=== PATIENT | female | born 1970 | race Caucasian/White ===

== ENCOUNTER 2017-02-01 05:39 | Inpatient (IN) | payer BC ==
[~2017-02-01] VITALS: Ht 167.6 cm; Wt 75.5 kg
[~2017-02-01 05:39] MED LIST: OMEP20CA9 PO
[2017-02-01 06:45] LABS: NEG OBC UR NEG; POS OBC UR POS
[2017-02-01] MEDS ORDERED: MORPHINE SULFATE 2 MG/ML DISP.SYRIN. IV PRN ×2 (07:00→11:15)
[2017-02-01] MEDS ORDERED: HYDROmorphone 2 MG/ML VIAL IV PRN (07:00)
[2017-02-01] MEDS ORDERED: ONDANSETRON PF 4 MG/2 ML VIAL. ONE ×2 (07:00→10:57)
[2017-02-01] MEDS ORDERED: DEXAMETHASONE SOD PHOS 20 MG/5 ML VIAL. ONE (07:00)
[2017-02-01] MEDS ORDERED: IV RINGERS,LACTATED 1000ML 1,000 ML IV SCH (07:00)
[2017-02-01] MEDS ORDERED: LIDOCAINE 1% 1 ML SYRINGE. ID PRN (07:00)
[2017-02-01] MEDS ORDERED: PROCHLORPERAZINE 10 MG/2 ML VIAL. IV PRN (07:00)
[2017-02-01] MEDS ORDERED: PROPOFOL 20 ML IV ONE (07:00)
[2017-02-01] MEDS ORDERED: MIDAZOLAM HCL/PF 2 MG/2 ML VIAL. ONE (07:00)
[2017-02-01] MEDS ORDERED: fentaNYL PF VIAL 250 MCG/5 ML VIAL ONE (07:00)
[2017-02-01] MEDS ORDERED: fentaNYL PF VIAL 100 MCG/2 ML VIAL IV PRN ×2 (07:00)
[2017-02-01] MEDS ORDERED: ONDANSETRON PF 4 MG/2 ML VIAL. IV PRN ×2 (07:00→11:15)
[2017-02-01] MEDS ORDERED: LIDOCAINE 2% PF Vial for OR 5 ML VIAL. ONE (07:01)
[2017-02-01] MEDS ORDERED: FAMOTIDINE 20 MG/2 ML VIAL ONE (07:02)
[2017-02-01] MEDS ORDERED: ROCURONIUM 50 MG/5 ML VIAL. ONE ×2 (07:04→08:48)
[2017-02-01] MEDS ORDERED: BUPIVACAINE-EPI 0.25%-1:200000 50 ML VIAL. ONE (07:13)
[2017-02-01] MEDS ORDERED: BUPIVACAINE-EPI 0.25%-1:200000 MPF 30 ML VIAL. ONE (07:13)
[2017-02-01] MEDS ORDERED: METHYLENE BLUE 1% 1 ML VIAL. ONE (07:13)
[2017-02-01] MEDS ORDERED: 0.9 % SODIUM CHLORIDE 50 ML VIAL. IJ ONE ×2 (07:14→08:58)
[2017-02-01] MEDS ORDERED: ESTROGENS, CONJ VAGINAL CREAM 30GM TUBE. ONE (07:14)
[2017-02-01] MEDS ORDERED: ePHEDrine PF IN SALINE 50 MG/5 ML DISP.SYRIN IV ONE (08:05)
[2017-02-01] MEDS ORDERED: MORPHINE SULFATE 10 MG/ML VIAL. ONE (08:57)
[2017-02-01] MEDS ORDERED: NEOSTIGMINE METHYLSULFATE 5 MG/5 ML SYRINGE. ONE (10:22)
[2017-02-01] MEDS ORDERED: GLYCOPYRROLATE 1 MG/5 ML VIAL. ONE (10:22)
[2017-02-01] MEDS ORDERED: SEVOFLURANE > 120 MINUTES. IH ONE (10:40)
[2017-02-01] MEDS ORDERED: KETOROLAC 60 MG/2 ML INJ FOR OR. ONE (10:45)
--- NOTE | 2017-02-01 11:09 | PDOC ---
BRIEF OPERATIVE NOTE Date: Feb 01, 2017 Pre-Op Diagnosis enlared fibroid uterus, genuine stress urinary incontinence Post-Op Diagnosis same with adhesions of descending colon to posterior fibroid uterus Procedure Performed attempted laparoscopic vaginal hyst, converted to BRE, adhesiolysis, TVT abbrevo with cystoscopy and intraoperative consult with Dr. De Jesus obtained to look at surface of descending colon Surgeon Dr. Eric Bailey Thermometer Tester Dr. Hiwot Looney and intraoperative consult done by Dr. Mayelin De Jesus Anesthesiologist see anesthesia records Anesthesia Type: General Blood Loss 370cc IV Fluid see anesthesia records Urine Output 400cc clear via king Specimens Obtained cervix, uterus, bilateral tubes Findings enlarged fibroid uterus, normal bilateral tubes and ovaries; descending colon adhesed to left side of posterior uterus, unable to get good visualization around very large fibroids, so converted to open Complications none Additional Remarks [id number] ERIC BAILEY MD Feb 01, 2017 11:09
[2017-02-01] MEDS ORDERED: diphenhydrAMINE HCL 25 MG CAPSULE PO PRN (11:15)
[2017-02-01] MEDS ORDERED: diphenhydrAMINE 50 MG/ML VIAL IV PRN (11:15)
[2017-02-01] MEDS ORDERED: CALCIUM CARBONATE 500 MG TAB.CHEW PO PRN (11:15)
[2017-02-01] MEDS ORDERED: NALOXONE 0.4 MG/ML VIAL. IV PRN (11:15)
[2017-02-01] MEDS ORDERED: ZOLPIDEM 5 MG TABLET. PO PRN (11:15)
[2017-02-01] MEDS ORDERED: MAGNESIUM HYDROXIDE 2,400 MG/30 ML ORAL.SUSP. PO PRN (11:15)
[2017-02-01] MEDS ORDERED: SIMETHICONE 80 MG TAB.CHEW PO PRN (11:15)
[2017-02-01] MEDS ORDERED: LACTULOSE 20 GM/30 ML SOLUTION. PO PRN (11:15)
[2017-02-01] MEDS ORDERED: 0.9 % SODIUM CHLORIDE 10 ML DISP.SYRIN. IV PRN (11:15)
[2017-02-01] MEDS ORDERED: MAG HYDROX/ALUMINUM HYD/SIMETH 30 ML ORAL.SUSP PO PRN (11:15)
[2017-02-01 12:30] VITALS: BP 119/66
[2017-02-01 12:45] VITALS: BP 122/70
[2017-02-01 13:00] VITALS: BP 127/68
[2017-02-01 13:15] VITALS: BP 126/65
--- NOTE | 2017-02-01 13:26 | OP ---
DATE OF SURGERY: 02/01/2017 PREOPERATIVE DIAGNOSES: Enlarged fibroid uterus, anemia, and genuine stress urinary incontinence. POSTOPERATIVE DIAGNOSES: Enlarged fibroid uterus, anemia, and genuine stress urinary incontinence with adhesive disease. She had adhesions of her descending colon to the posterior uterus and large fibroid uterus. PROCEDURE: Attempted laparoscopic-assisted vaginal hysterectomy with conversion to an open total abdominal hysterectomy, adhesiolysis, bilateral salpingectomy, and TVT Abbrevo with cystoscopy. SURGEON: Eric Bailey M.D. PAINT MIXER: Hiwot Looney MD Intraoperative consult done by Dr. Wilma De Jesus. ANESTHESIA: General. ESTIMATED BLOOD LOSS: 370 mL. URINE OUTPUT: 400 mL, clear via Jimenez catheter. SPECIMEN OBTAINED: Cervix, uterus, and bilateral tubes. FINDINGS: Enlarged fibroid uterus, normal bilateral tubes and ovaries with the descending colon attached to the left side of the posterior uterus. As we were unable to get good visualization around the enlarged fibroid, it was decided to convert to an open total abdominal hysterectomy. These were taken down. The surface of the descending colon looked just kind of very friable and denuded. We did not think there was any bowel injury. However, we wanted to get a second opinion and did intraoperative consult with general surgeon, Dr. Wilma De Jesus, who took a second look at it for us to make sure nothing else needed to be done before closing. COMPLICATIONS: None. DESCRIPTION OF PROCEDURE: This patient was taken to the Operating Room where general anesthesia was placed. The patient was placed in a dorsal lithotomy position in [facility]. The patient's abdomen and vagina were prepped and draped in the normal sterile fashion, and a Jimenez catheter was inserted under sterile technique. After performing a timeout, a bivalve speculum was placed in the patient's vagina. A single tooth tenaculum was used to grasp the anterior lip of the cervix. A 10 mL of 0.25% Marcaine with epinephrine was used circumferentially injected around the cervix for both hemodissection and hemostatic purposes later. At this point, the ValtchMyrio uterine manipulator was placed through the endocervical os, locked on the single tooth tenaculum, and the bivalve speculum was then removed. Top gloves were discarded and changed. Attention was turned to the abdomen where a left upper quadrant incision was made, carried down to the underlying layer to the fascia with a curved Felisha clamp. The 5-mm Visiport was used to directly enter the abdominal cavity. Opening patient pressure was 2 mmHg. Carbon dioxide gas was used then appropriately to insufflate the abdominal cavity to maintain a pressure of 15 mmHg. The patient was placed in Trendelenburg position where a right and left lower quadrant ports were placed under direct visualization without difficulty as well atraumatically with the 5-mm Ethicon disposable atraumatic ports. At this point, we were able to identify the left and right round ligaments and see the uterus upfront, so we did begin the hysterectomy. The left round ligament was cauterized and cut with the LigaSure Advance, creating a window in the mesosalpinx, going down and making the bladder flap anteriorly sharply, elevating the left tube and ovary, going above the ovary, below the tube, doing a salpingectomy, and then even crossing the uterine ovarian pedicle with the LigaSure, cauterizing and cutting. This was done exactly the same on the right side. Using a 5-mm laparoscopic 5-mm single tooth tenaculum, we were able to manipulate the uterus fairly well to get down and try to get the uterine vessels and go down and further meet that bladder flap anteriorly after doing the right round ligament, cauterizing and cutting it, and going down and meeting that bladder flap, elevating the right tube and ovary, and again just doing the tube leaving the normal right ovary per the patient's request, crossing the uterine ovarian pedicle and again obtaining the uterines on this side, so we were able to accomplish that. However, as we were trying to go down the cervix into the cervix there on the left side, there were some peritoneal adhesions and then what looked like possible colon or bowel adhesions to the left posterior uterus. As we were unable to see these very well and get a good look out, and we were able to manipulate the enlarged uterus as well as we would have liked to, it was decided at this point, knowing that there was possible bowel adhesions, to go ahead and open her as we could not safely go down through the cardinal and broad ligaments with possible bowel adhesions on this left side. So at this point, all instruments were removed from the abdomen, and we did make a Pfannenstiel skin incision with the scalpel. It was carried down to the underlying layer of the fascia. The fascia was scored in the midline with the Bovie cautery. The Bovie cautery was used in the subcuticular layer for hemostasis. Ryan scissors were used to extend the fascia bilaterally. Uriel clamps x2 were placed on the superior fascial edge. The fascia was dissected from the rectus muscles beneath sharply and bluntly. This was done inferiorly as well down to the level of the pubic bone. The rectus muscles were in the midline. The peritoneum was digitally entered and bluntly stretched. The uterus was able to be grasped and brought through the incision well, and then using 3 moist laps, the bowel was easily packed away. We were able to see that there was indeed some colon adhesions on that side, and we then used Metzenbaum to create a plane and kind of push it down out of the way and below the area of the cervix. However, the initial adhesiolysis was done laparoscopically, and even pushing it down using a moist lap, it denuded the surface, and so we knew we wanted to have a second look at this later. So at this point, a sponge stick was used to push down the anterior bladder. Peritoneum was taken down. It went down very very well. We were able then to take curved Heaneys into the uterines again on both sides clamping them with curved Heaneys x2, placing a curved Uriel for back bleeding, cutting with Ryan scissors and suture ligating x2 with 0 Vicryl. This was done on both sides for the uterine vessels and then again clamping for the back bleeding. Once this was done, staying inside that pedicle, the right side was always clear. The left side of the bowel was now down. We used straight Heaneys inside this to go down through the cardinal and broad ligaments to the uterosacrals, double clamping with straight Heaneys, cutting with a long knife, and suture ligating x2 with #0 Vicryl. Once we were down to the uterosacrals, double clamping across and below the cervix, and when I did it on the right side, double clamping it with curved Farnaz, cutting with Ryan scissors, I was in vaginally, and I tagged that corner, came from the other side as well and met at, and we were in as well, so we put Uriel around the remaining vaginal cuff, used the Wiley to clip off the remaining pedicles, and the cervix, uterus, bilateral tubes were passed off in total for permanent pathology. I believe 2 interrupted 0 Vicryl stitches were used to close the remaining cuff, maybe 3. Three interrupted 0 Vicryl sutures were used to close the remaining pedicles between the two tags of the uterosacrals where we got in. Copious irrigation revealed hemostasis. There was some denuding of that bowel as I described. It did not appear to be in but with the possible using the LigaSure around that area before we went below and then peeling it off. Even once we were open, we did ask General Surgery. Dr. De Jesus was here for a case. She was able to come in. She wanted to scrub in and get a second look, but she had a case right next door, so we actually packed her with moist laps and vaginally ended the sling at this point. Attention was turned vaginally where a weighted speculum was placed in the patient's vagina. There was no bleeding. The cuffs appeared closed and sewn well. An Allis clamp was placed approximately 1 cm below the urethra. A 40 mL of a dilute 3 parts injectable saline to 1 part local was injected in the suburethral area and out laterally. A small 1-cm incision was made with the scalpel. Allis clamps x2 were placed on both sides, and the Metzenbaum scissors were used to dissect laterally out to the obturator foramen. A marking pen was used to ashley the urethra 2 cm up from that and 2 cm out from the lateral groin fold for the expected sling location. Once it was dissected out laterally, the wing guide applicator was placed on the patient's right side. The sling was placed through and came out very close to that within a centimeter of that marking. A small incision was made in the skin, and the sling guide was popped through. The wing guide applicator was removed. The right sheath was grasped with a curved Felisah, and the sheath was taken off the handheld curved guide. Once this was done, it was done exactly the same on the patient's left side putting the wing guide applicator in, taking the sling through, coming out of the expected location, making a small sami in the skin, grabbing that with a curved Felisha, removing the wing guide applicator, removing the sling from the curved handheld device, pulling it through enough. At this point, the Jimenez bulb was deflated it, and we did do a cystoscopy. Approximately, 400 mL to 500 mL was put in. The bladder filled. There was no blood, no lesions. Both the urethral orifices were seen. There was no blue sling in the bladder. At this point, it was ended. Some of the fluid was drained. The plastic guide sheathes were cut off. The curved Felisha was placed on the plastic sheath. A small curved Felisha was placed between the urethra and the sling to make sure it was not too tight, and the plastic sheaths were pulled off. The Prolene was in the middle. We pulled the side Prolene out, put the middle Prolene, and the sling was then placed. FloSeal was placed over the sling with excellent results. A 2-layer closure was done first with Monocryl and the subcuticular layer, then with 2-0 Vicryl over the top. Once this was done and hemostasis was assured, the legs were put back down. All gloves were discarded and changed. At this point, Dr. De Jesus came back in to do a second look with us, and she did copious irrigation, looked at the bowel, felt the bowel, looked at the bowel, and decided that she did not think anything needed to be done, no oversewing, that it just appeared that the surface of it was rough and denuded from the adhesions, but there was no overt obvious hole, injury, or seepage of anything, and that it was okay to close. So at this point, Tisseel was placed over the cuff. The three laps were removed from packing. I did have them do a count before closing, and the sponge, lap count was correct, and #0 Vicryl was used to close the fascia from left to the midline, right to midline. The rectus muscles had previously been examined and sat for a little while and were all hemostatic as was everything inside. We had examined the ovarian pedicles and taking care of those before Dr. De Jesus leaving, came back, and to examine the bowel. Once we did the Tisseel, we removed all the laps. The lap count was correct. We closed the fascia, irrigated the subcuticular layer. It was also hemostatic, and we closed with lavonne on the skin. Before going vaginally converting, we did pull out all 3 laparoscopic port sites and closed those with nylon before doing the vaginal part, but that was done as well. At this point, she was completely closed, and she is being awakened from anesthesia. ERIC BAILEY MD DR: PHILIPPE/joya JOB#: [id number] / [id number]
[2017-02-01 13:36] LABS: HEMATOCRIT 27.3 % (36.0-47.0); HEMOGLOBIN 8.3 g/dL (12.0-15.5); RED BLOOD COUNT 4.27 x10^6/uL (3.50-5.40); RED CELL DISTRIBUTION WIDTH 18.8 % (11.5-14.5); WHITE BLOOD COUNT 16.1 x10^3/uL (4.0-11.0)
--- NOTE | 2017-02-01 13:47 | PDOC ---
Provider Note Provider Note #[id number]--bi note. preop dx: pelvic adhesions. questionable rectal injury post op: pelvic adhesions procedure: xlap findings: no evidence of rectal injury. MADINA COHEN MD Feb 01, 2017 13:47
--- NOTE | 2017-02-01 18:25 | OP ---
DATE OF SURGERY: 02/01/2017 PREOPERATIVE DIAGNOSES: 1. Questionable rectal injury. 2. Intra-abdominal adhesions. POSTOPERATIVE DIAGNOSIS: 1. Intra-abdominal adhesions. SURGEON: Madina Cohen M.D. PROCEDURE PERFORMED: Exploratory laparotomy. ANESTHESIA: General. ESTIMATED BLOOD LOSS: None for my portion of the case. IV FLUIDS: See anesthesia record. INDICATIONS: The patient is a 46-year-old female who is undergoing a laparoscopic convert to open hysterectomy by Dr. Bailey and Dr. Looney. FINDINGS: Per Dr. Bailey's description, she had extensive pelvic adhesions with a large uterus adherent to the anterior rectal wall. After the hysterectomy was performed, inspection of the rectum performed by Dr. Bailey and Dr. Looney gave rise to a concern that there could be a rectal injury and at that point, I was consulted intraoperatively to come and assess the rectum. DESCRIPTION OF PROCEDURE: Due to the fact that she was under general anesthetic, I was unable to obtain an informed consent. She was in the operating room with the Pfannenstiel incision. A handheld retractor was placed with the Pfannenstiel incision. Dr. Bailey had packed away the small bowel prior to my entering the OR. I did not disturb these. I did not add additional packing to the abdomen during the surgery. At this point, using hand-held retractors, the pelvis was inspected. Visualized portions of the cecum appeared normal and unremarkable. Visualized portions of the sigmoid and proximal rectum appeared unremarkable. The mid rectum, just proximal to the vaginal cuff, had some areas where it was obvious that adhesiolysis had been performed, but there was no evidence of serosal injury and no evidence of full-thickness injury, there was no evidence of any rectal injury requiring immediate repair. The area was hemostatic. We did discuss that they had used LigaSure for some of the dissection. They felt this was mostly on the pelvis side wall tissues just to the left of the rectum and not on the rectum itself. At this point, there was no evidence of a thermal injury, but I did discuss with Dr. Bailey and Dr. Looney the reality that thermal injuries can be very difficult to identify intraoperatively and that I would have a low threshold if the patient called their office complaining of abdominal pain, fevers, or other complaints, to have her readmitted, and re-examined and reimaged accordingly. At this point today, there is nothing on the rectum that would need repair or resection. The small bowel and remainder of the colon were already packed away upon me entering the case, I did not re-examine that area as Dr. Bailey and Dr. Looney had no concerns about the other intestinal structures. When I left the case, they were going to begin to close and that would include her removing the packs that they placed within the abdomen before the surgery. MADINA COHEN MD DR: CLAYTON/joya JOB#: [id number] / [id number] [place]
[2017-02-01 23:00] VITALS: BP 111/62
[2017-02-02] VITALS (7 sets, daily range): BP systolic 89–107; BP diastolic 49–61
[2017-02-02] MEDS: HYDROcodone/APAP 5/325MG 1 TAB TABLET PO PRN ×3 (03:01→15:47)
[2017-02-02 05:44] LABS: BASO % 0 % (0-3); EOS % 0 % (0-3); HEMATOCRIT 23.9 % (36.0-47.0); HEMOGLOBIN 7.1 g/dL (12.0-15.5); LYMPH # 1.6 x10^3/uL (1.0-4.8); LYMPH % 13 % (24-48); MEAN CORPUSCULAR HEMOGLOBIN 19 pg (25-35); MEAN CORPUSCULAR HGB CONC 30 g/dL (31-37); MEAN CORPUSCULAR VOLUME 65 fL (79-100); MONO % 10 % (0-9); NEUT % 77 % (31-73); PLATELET COUNT 235 x10^3/uL (140-400); RED BLOOD COUNT 3.67 x10^6/uL (3.50-5.40); RED CELL DISTRIBUTION WIDTH 19.2 % (11.5-14.5); WHITE BLOOD COUNT 12.5 x10^3/uL (4.0-11.0)
[2017-02-02 06:10] LABS: CREATININE 0.7 mg/dL (0.6-1.0); GFR 90.5; POTASSIUM 4.3 mmol/L (3.5-5.1)
--- NOTE | 2017-02-02 06:25 | ACF ---
Admission Forms Criteria AMBULATORY SURGERY EXCEPTION CRITERIA Ambulatory Surgery Exception Criteria ( Place 'X' for any and all applicable criteria): Surgery or procedure performed on ambulatory basis may require inpatient stay for[A] ANY ONE of the following(1)(2)(3)(4)(5)(6)(7)(8)(9): [] I. A preoperative situation, condition, or finding that warrants inpatient stay as indicated by ANY ONE of the following: [] a) Inpatient care needed because of severity of a disease or condition rather than the surgery (eg, severe cardiac or respiratory disease, severe infection) (15) (16 ) (17) (18) [] b) Emergent procedure (eg, angioplasty for acute ischemia)(19) [] c) Complex surgical approach or situation as indicated by ANY ONE of the following(3): [] i) Open approach needed instead of usual endoscopic, transcatheter, or other less invasive procedure [] ii) Difficult approach because of previous operation [] iii) Airway monitoring required after open neck procedures(20)(21 ) [] iv) Large mass requiring unusually extensive dissection [] v) Additional complicating feature requiring inpatient care (eg , drain management)(22(23): [] d) Major surgery in a pt with high anesthetic risk as indicated by ANY ONE of the following (2)(3)(5)(7)(8): [] i) ASA risk class III or higher (severe systemic disease impairing function) [D] [] ii) Advanced age (eg, older than 85 years)(14)(24) [] iii) Symptomatic heart failure(25) [] iv) Symptomatic asthma or COPD(8)(21) [] v) Morbid obesity with hemodynamic or respiratory problems(20)( 21)(26)(27) [] vi) Obstructive sleep apnea(20)(21) [] vii) Former premature infants who are younger than 60 weeks [] viii) High risk for severe postoperative abnormalities (eg, severe postoperative hypocalcemia after parathyroidectomy for severe hyperparathyroidism)(27)( 28) [] ix) Unstable angina(25) [] e) Drug-related risk requiring inpatient stay as indicated by ANY ONE of the following(5)(10)(14)(32)(33) [] i) Procedure requires discontinuing drugs or other therapy (eg , antiarrhythmic medication, antiseizure medication), which necessitates inpatient observation or treatment.(18)(31) [] ii) Major surgery and high risk drug use as indicated by ANY ONE of the following: [] 1) Active abuse of cocaine or similar drug [] 2) Monoamine oxidase inhibitor use [] 3) Other drug identified as posing risk [] f) Inadequate outpatient care situation as indicated by ANY ONE of the following(5)(10)(14)(32)(33) [] i) Patient lives remote from medical facility and procedure has urgent complication potential, and temporary nearby residence cannot be arranged [] ii) Patient will have postprocedure incapacitation and inadequate assistance at home, or alternative level of care cannot be arranged. [] iii) Patient will have long general anesthesia or procedure side effect resolution time, and competent person to stay with patient on first postoperative night at home or alternative level of care cannot be arranged. [] iv) Other inadequate outpatient situation that cannot be handled by other means [X] II. A perioperative event, condition, or finding that warrants inpatient stay as indicated by ANY ONE of the following (1)(2)(3): [] a) Inadequate physiologic recovery: cardiovascular, respiratory, or hemodynamic status not normal or near preoperative baseline(18) [] b) Hemodynamic instability [] c) Patient not alert with near normal or baseline mental status [] d) Temperature not normal or as expected and not appropriate for outpatient treatment of condition [] e) Ambulatory or appropriate activity level status not yet achieved post procedure [E](34)(35)(36) [] f) Operative site not appropriate (eg, unexpected or excessive drainage or bleeding) [] g) Postoperative effects not resolved or adequately managed (eg, significant pain or vomiting not appropriate for outpatient or next level of care)(10)(12) [X] h) Complicating features requiring inpatient care as indicated by ANY ONE of the following(37): [] i) Severe complications of procedure (eg, bowel injury, airway compromise, vascular injury,severe hemorrhage) [] ii) Extensive (eg, dissection far beyond usual scope of procedure ) or prolonged (eg, 120 minutes beyond usual) surgery needed requiring inpatient postoperative care [X] iii) Conversion to an open or complex procedure that requires inpatient care (eg, open vs laparoscopic cholecystectomy, abdominal vs vaginal hysterectomy)(38) [] iv) Comorbid condition or test result identified during or post procedure that requires inpatient care (7) [] v) Malignant hyperthermia(30) [] vi) Other complicating feature requiring inpatient care(22)(23) Inpatient stay may be needed until ALL of the following are present (1)(2)(3)(4) (5)(6)(10)(14)(33)(40): []a) Physiologic recovery: cardiovascular, respiratory, and hemodynamic status normal or near preoperative baseline []b) Hemodynamic stability []c) Patient alert, with near normal or baseline mental status []d) Temperature appropriate: patient afebrile or temperature appropriate for outpt treatment of condition []e) Activity level appropriate: ambulatory or appropriate activity level post procedure []f) Operative site appropriate as indicated by ALL of the following: []i) Site dry or with expected drainage []ii) Any blood noted is as expected for procedure. []g) Postoperative effects resolved or managed as indicated by ALL of the following: []i) Pain management appropriate for outpatient (or next level of) care(10) []ii) Minimal nausea and vomiting: if present, successfully treated with oral medication(12) []iii) Headache, dizziness, or drowsiness (if present) are mild. []h) Voiding status acceptable as indicated by ANY ONE of the following: []i) Voiding spontaneously []ii) No voiding but instructions given for follow-up in 6 to 8 hours []iii) Urinary catheter in place, and instructions given for follow-up []i) Complicating features requiring inpatient care manageable at a lower level of care(37) []j) Comorbid conditions manageable at a lower level of care(37) The original [employer] content created by [employer] has been revised. The portions of the content which have been revised are identified through the use of italic text or in bold, and [employer] has neither reviewed nor approved the modified material. All other unmodified content is copyright [employer]. Please see references footnoted in the original [employer] edition 2016 Admission Criteria Met?: Yes JUAN ALEX Feb 02, 2017 06:24
--- NOTE | 2017-02-02 06:40 | CONS ---
DATE OF CONSULTATION: 02/01/2017 REASON FOR CONSULTATION: Question of rectal injury. HISTORY OF PRESENT ILLNESS: The patient is a 46-year-old female, who at the time of consult was in the operating room for laparoscopic converted to open hysterectomy and the hysterectomy had been completed when I was called to the operating room by Dr. Bailey and Dr. Looney. There was a question of whether or not the rectum was injured or uninjured during the hysterectomy and adhesiolysis. Because of the fact that she is under general anesthetic, I was unable to obtain any more in terms of HPI, past medical history, review of systems, medications, social history, family history or physical exam. PHYSICAL EXAMINATION: GENERAL: She is on the operating room table under general anesthetic. ASSESSMENT: 1. Questionable rectal injury intraoperatively. 2. Status post laparoscopic converted to open hysterectomy. PLAN: At that point, I did scrub into the operation and performed exploration of the pelvis. Please see operative note for details. MADINA COHEN MD DR: CLAYTON/nts JOB#: [id number] / [id number] ERIC Mathis MD MTDD
[2017-02-02] MEDS: PANTOPRAZOLE 40 MG TABLET.DR. PO SCH (07:38)
--- NOTE | 2017-02-02 09:04 | PDOC ---
SURGICAL PROGRESS NOTE Subjective Doing well without complaints. Has not voided yet, catheter just out this am. Tolerating regular diet and ambulating well. Scant vag bleeding only. Pt is requesting to go home No dizziness or lightheadedness, pt is asymptomatic with anemia. (has been there before with horrible periods) Vital Signs Vital Signs Date Time Temp Pulse Resp B/P (MAP) Pulse Ox O2 Delivery O2 Flow Rate FiO2 02/02/17 08:00 Room Air 02/02/17 05:55 99.0 88 16 91/49 (63) 99.0 02/01/17 20:58 5.0 02/01/17 12:30 97 I&O Intake and Output 02/02/17 07:00 Intake Total 5500 ml Output Total 2195 ml Balance 3305 ml Intake Oral 200 ml IV Total 3950 ml Other 1350 ml Output Urine Total 1825 ml Estimated Blood Loss 370 ml PATIENT HAS A DOUGLASS: No General: Alert, Oriented X3, Cooperative, No acute distress HEENT: Atraumatic Heart: Regular rate Abdomen: Soft, No tenderness, No masses, Other (incision c/d/i all port sites clean and dry also) Extremities: No clubbing, No cyanosis, No edema, No tenderness/swelling Skin: No rashes, No breakdown Neuro: Normal speech Psych/Mental Status: Mental status NL, Mood NL Labs Laboratory Tests Test 02/01/17 06:00 02/01/17 13:15 02/02/17 05:29 Urine Test Negative (NEG) White Blood Count 16.1 x10^3/uL (4.0-11.0) 12.5 x10^3/uL (4.0-11.0) Red Blood Count 4.27 x10^6/uL (3.50-5.40) 3.67 x10^6/uL (3.50-5.40) Hemoglobin 8.3 g/dL (12.0-15.5) 7.1 g/dL (12.0-15.5) Hematocrit 27.3 % (36.0-47.0) 23.9 % (36.0-47.0) Mean Corpuscular Volume 64 fL (79-100) 65 fL (79-100) Mean Corpuscular Hemoglobin 20 pg (25-35) 19 pg (25-35) Mean Corpuscular Hemoglobin Concent 31 g/dL (31-37) 30 g/dL (31-37) Red Cell Distribution Width 18.8 % (11.5-14.5) 19.2 % (11.5-14.5) Platelet Count 293 x10^3/uL (140-400) 235 x10^3/uL (140-400) Neutrophils (%) (Auto) 77 % (31-73) Lymphocytes (%) (Auto) 13 % (24-48) Monocytes (%) (Auto) 10 % (0-9) Eosinophils (%) (Auto) 0 % (0-3) Basophils (%) (Auto) 0 % (0-3) Neutrophils # (Auto) 9.6 x10^3uL (1.8-7.7) Lymphocytes # (Auto) 1.6 x10^3/uL (1.0-4.8) Monocytes # (Auto) 1.2 x10^3/uL (0.0-1.1) Eosinophils # (Auto) 0.0 x10^3/uL (0.0-0.7) Basophils # (Auto) 0.0 x10^3/uL (0.0-0.2) Sodium Level 137 mmol/L (136-145) Potassium Level 4.3 mmol/L (3.5-5.1) Chloride Level 105 mmol/L (98-107) Carbon Dioxide Level 21 mmol/L (21-32) Anion Gap 11 (6-14) Blood Urea Nitrogen 7 mg/dL (7-20) Creatinine 0.7 mg/dL (0.6-1.0) Estimated GFR (Cockcroft-Gault) 90.5 Glucose Level 117 mg/dL (70-99) Calcium Level 7.0 mg/dL (8.5-10.1) Laboratory Tests Test 02/01/17 13:15 02/02/17 05:29 White Blood Count 16.1 x10^3/uL (4.0-11.0) 12.5 x10^3/uL (4.0-11.0) Red Blood Count 4.27 x10^6/uL (3.50-5.40) 3.67 x10^6/uL (3.50-5.40) Hemoglobin 8.3 g/dL (12.0-15.5) 7.1 g/dL (12.0-15.5) Hematocrit 27.3 % (36.0-47.0) 23.9 % (36.0-47.0) Mean Corpuscular Volume 64 fL (79-100) 65 fL (79-100) Mean Corpuscular Hemoglobin 20 pg (25-35) 19 pg (25-35) Mean Corpuscular Hemoglobin Concent 31 g/dL (31-37) 30 g/dL (31-37) Red Cell Distribution Width 18.8 % (11.5-14.5) 19.2 % (11.5-14.5) Platelet Count 293 x10^3/uL (140-400) 235 x10^3/uL (140-400) Neutrophils (%) (Auto) 77 % (31-73) Lymphocytes (%) (Auto) 13 % (24-48) Monocytes (%) (Auto) 10 % (0-9) Eosinophils (%) (Auto) 0 % (0-3) Basophils (%) (Auto) 0 % (0-3) Neutrophils # (Auto) 9.6 x10^3uL (1.8-7.7) Lymphocytes # (Auto) 1.6 x10^3/uL (1.0-4.8) Monocytes # (Auto) 1.2 x10^3/uL (0.0-1.1) Eosinophils # (Auto) 0.0 x10^3/uL (0.0-0.7) Basophils # (Auto) 0.0 x10^3/uL (0.0-0.2) Sodium Level 137 mmol/L (136-145) Potassium Level 4.3 mmol/L (3.5-5.1) Chloride Level 105 mmol/L (98-107) Carbon Dioxide Level 21 mmol/L (21-32) Anion Gap 11 (6-14) Blood Urea Nitrogen 7 mg/dL (7-20) Creatinine 0.7 mg/dL (0.6-1.0) Estimated GFR (Cockcroft-Gault) 90.5 Glucose Level 117 mg/dL (70-99) Calcium Level 7.0 mg/dL (8.5-10.1) I have reviewed the following labs, vitals and nursing Cardiovascular: No pertinent hx Pulmonary: No pertinent hx Rheumatologic: No pertinent hx Infectious disease: No pertinent hx Problem List POD #1 s/p attempted laparoscopy converted to BRE with enlarged uterus and colon adhesions to posterior uterus Chronic anemia with acute on top iron bid will get orthostatic BP repeat hgb tomorrow pt considering going later today, want her to stay all day, make sure she can urinate, tolerate regular diet, ambulate well and still wants to go, if so will check hgb before discharge again lay 89/55 75, sitting 104/61 87 and standing 100/59 77 not orthostatic Problems: ERIC CASAS MD Feb 02, 2017 09:04
[2017-02-02 09:15] LABS: PLT ESTIMATE ADEQUATE (ADEQUATE)
[2017-02-02 09:16] LABS: ANISOCYTOSIS PRESENT; HYPOCHROMIA MOD; MICROCYTOSIS MARKED; OVALOCYTES FEW; POLYCHROMASIA SLIGHT; TEAR DROP CELLS OCC
--- NOTE | 2017-02-02 09:42 | PDOC ---
ZACH ESTRADA NAILER MACHINE 02/02/17 0942: SURGICAL PROGRESS NOTE Subjective tolerating diet pain managed Vital Signs Vital Signs Date Time Temp Pulse Resp B/P (MAP) Pulse Ox O2 Delivery O2 Flow Rate FiO2 02/02/17 09:30 77 100/59 (73) 02/02/17 09:28 98.3 16 94 Room Air 98.3 02/01/17 20:58 5.0 I&O Intake and Output 02/02/17 07:00 Intake Total 5500 ml Output Total 2195 ml Balance 3305 ml Intake Oral 200 ml IV Total 3950 ml Other 1350 ml Output Urine Total 1825 ml Estimated Blood Loss 370 ml General: Alert, Oriented X3, Cooperative, No acute distress Abdomen: Soft, No tenderness, Other (lap sites c/d/i, no erythema) Labs Laboratory Tests Test 02/01/17 06:00 02/01/17 13:15 02/02/17 05:29 Urine Test Negative (NEG) White Blood Count 16.1 x10^3/uL (4.0-11.0) 12.5 x10^3/uL (4.0-11.0) Red Blood Count 4.27 x10^6/uL (3.50-5.40) 3.67 x10^6/uL (3.50-5.40) Hemoglobin 8.3 g/dL (12.0-15.5) 7.1 g/dL (12.0-15.5) Hematocrit 27.3 % (36.0-47.0) 23.9 % (36.0-47.0) Mean Corpuscular Volume 64 fL (79-100) 65 fL (79-100) Mean Corpuscular Hemoglobin 20 pg (25-35) 19 pg (25-35) Mean Corpuscular Hemoglobin Concent 31 g/dL (31-37) 30 g/dL (31-37) Red Cell Distribution Width 18.8 % (11.5-14.5) 19.2 % (11.5-14.5) Platelet Count 293 x10^3/uL (140-400) 235 x10^3/uL (140-400) Neutrophils (%) (Auto) 77 % (31-73) Lymphocytes (%) (Auto) 13 % (24-48) Monocytes (%) (Auto) 10 % (0-9) Eosinophils (%) (Auto) 0 % (0-3) Basophils (%) (Auto) 0 % (0-3) Neutrophils # (Auto) 9.6 x10^3uL (1.8-7.7) Lymphocytes # (Auto) 1.6 x10^3/uL (1.0-4.8) Monocytes # (Auto) 1.2 x10^3/uL (0.0-1.1) Eosinophils # (Auto) 0.0 x10^3/uL (0.0-0.7) Basophils # (Auto) 0.0 x10^3/uL (0.0-0.2) Platelet Estimate Adequate (ADEQUATE) Polychromasia Slight Hypochromasia Mod Anisocytosis Present Microcytosis Marked Tear Drop Cells Occ Ovalocytes Few Sodium Level 137 mmol/L (136-145) Potassium Level 4.3 mmol/L (3.5-5.1) Chloride Level 105 mmol/L (98-107) Carbon Dioxide Level 21 mmol/L (21-32) Anion Gap 11 (6-14) Blood Urea Nitrogen 7 mg/dL (7-20) Creatinine 0.7 mg/dL (0.6-1.0) Estimated GFR (Cockcroft-Gault) 90.5 Glucose Level 117 mg/dL (70-99) Calcium Level 7.0 mg/dL (8.5-10.1) Laboratory Tests Test 02/01/17 13:15 02/02/17 05:29 White Blood Count 16.1 x10^3/uL (4.0-11.0) 12.5 x10^3/uL (4.0-11.0) Red Blood Count 4.27 x10^6/uL (3.50-5.40) 3.67 x10^6/uL (3.50-5.40) Hemoglobin 8.3 g/dL (12.0-15.5) 7.1 g/dL (12.0-15.5) Hematocrit 27.3 % (36.0-47.0) 23.9 % (36.0-47.0) Mean Corpuscular Volume 64 fL (79-100) 65 fL (79-100) Mean Corpuscular Hemoglobin 20 pg (25-35) 19 pg (25-35) Mean Corpuscular Hemoglobin Concent 31 g/dL (31-37) 30 g/dL (31-37) Red Cell Distribution Width 18.8 % (11.5-14.5) 19.2 % (11.5-14.5) Platelet Count 293 x10^3/uL (140-400) 235 x10^3/uL (140-400) Neutrophils (%) (Auto) 77 % (31-73) Lymphocytes (%) (Auto) 13 % (24-48) Monocytes (%) (Auto) 10 % (0-9) Eosinophils (%) (Auto) 0 % (0-3) Basophils (%) (Auto) 0 % (0-3) Neutrophils # (Auto) 9.6 x10^3uL (1.8-7.7) Lymphocytes # (Auto) 1.6 x10^3/uL (1.0-4.8) Monocytes # (Auto) 1.2 x10^3/uL (0.0-1.1) Eosinophils # (Auto) 0.0 x10^3/uL (0.0-0.7) Basophils # (Auto) 0.0 x10^3/uL (0.0-0.2) Platelet Estimate Adequate (ADEQUATE) Polychromasia Slight Hypochromasia Mod Anisocytosis Present Microcytosis Marked Tear Drop Cells Occ Ovalocytes Few Sodium Level 137 mmol/L (136-145) Potassium Level 4.3 mmol/L (3.5-5.1) Chloride Level 105 mmol/L (98-107) Carbon Dioxide Level 21 mmol/L (21-32) Anion Gap 11 (6-14) Blood Urea Nitrogen 7 mg/dL (7-20) Creatinine 0.7 mg/dL (0.6-1.0) Estimated GFR (Cockcroft-Gault) 90.5 Glucose Level 117 mg/dL (70-99) Calcium Level 7.0 mg/dL (8.5-10.1) Problem List s/p xlap - no rectal injury found as per [employer] Problems: MADINA COHEN MD 02/02/17 1405: SURGICAL PROGRESS NOTE Assessment/Plan will sign off. call with questions. Problems: ZACH ESTRADA APRN Feb 02, 2017 09:42 MADINA COHEN MD Feb 02, 2017 14:05
[2017-02-02] MEDS: FERROUS SULFATE 325 MG TABLET. PO SCH ×2 (12:30→18:27)
[2017-02-02] MEDS: DOCUSATE SODIUM 100 MG CAPSULE. PO PRN (15:01)
[2017-02-02] MEDS: oxyCODONE/APAP 5/325 1 TAB TABLET PO PRN (22:51)
[2017-02-03 04:59] VITALS: BP 92/50
[2017-02-03] MEDS: FERROUS SULFATE 325 MG TABLET. PO SCH (07:53)
[2017-02-03] MEDS: oxyCODONE/APAP 5/325 1 TAB TABLET PO PRN ×2 (07:53→14:01)
[2017-02-03] MEDS: PANTOPRAZOLE 40 MG TABLET.DR. PO SCH ×2 (07:53→14:00)
[2017-02-03 08:21] LABS: HEMATOCRIT 26.2 % (36.0-47.0); HEMOGLOBIN 7.9 g/dL (12.0-15.5); RED CELL DISTRIBUTION WIDTH 20.8 % (11.5-14.5); WHITE BLOOD COUNT 9.9 x10^3/uL (4.0-11.0)
--- NOTE | 2017-02-03 10:48 | PDOC ---
SURGICAL PROGRESS NOTE Subjective Doing well. +passing gas, tolerating regular diet without problems, voiding without catheter, ambulating well Vital Signs Vital Signs Date Time Temp Pulse Resp B/P (MAP) Pulse Ox O2 Delivery O2 Flow Rate FiO2 02/03/17 07:53 18 Room Air 02/03/17 04:59 98.1 78 92/50 (64) 97 98.1 PATIENT HAS A DOUGLASS: No General: Alert, Oriented X3, Cooperative, No acute distress HEENT: Atraumatic Heart: Regular rate Abdomen: Soft, No tenderness, No masses, Other (all port sites and incision c/d /i) Extremities: No clubbing, No cyanosis, No edema, No tenderness/swelling Skin: No rashes, No breakdown Neuro: Normal speech Psych/Mental Status: Mental status NL, Mood NL Labs Laboratory Tests Test 02/01/17 13:15 02/02/17 05:29 02/03/17 07:52 White Blood Count 16.1 x10^3/uL (4.0-11.0) 12.5 x10^3/uL (4.0-11.0) 9.9 x10^3/uL (4.0-11.0) Red Blood Count 4.27 x10^6/uL (3.50-5.40) 3.67 x10^6/uL (3.50-5.40) 4.00 x10^6/uL (3.50-5.40) Hemoglobin 8.3 g/dL (12.0-15.5) 7.1 g/dL (12.0-15.5) 7.9 g/dL (12.0-15.5) Hematocrit 27.3 % (36.0-47.0) 23.9 % (36.0-47.0) 26.2 % (36.0-47.0) Mean Corpuscular Volume 64 fL (79-100) 65 fL (79-100) 66 fL (79-100) Mean Corpuscular Hemoglobin 20 pg (25-35) 19 pg (25-35) 20 pg (25-35) Mean Corpuscular Hemoglobin Concent 31 g/dL (31-37) 30 g/dL (31-37) 30 g/dL (31-37) Red Cell Distribution Width 18.8 % (11.5-14.5) 19.2 % (11.5-14.5) 20.8 % (11.5-14.5) Platelet Count 293 x10^3/uL (140-400) 235 x10^3/uL (140-400) 270 x10^3/uL (140-400) Neutrophils (%) (Auto) 77 % (31-73) Lymphocytes (%) (Auto) 13 % (24-48) Monocytes (%) (Auto) 10 % (0-9) Eosinophils (%) (Auto) 0 % (0-3) Basophils (%) (Auto) 0 % (0-3) Neutrophils # (Auto) 9.6 x10^3uL (1.8-7.7) Lymphocytes # (Auto) 1.6 x10^3/uL (1.0-4.8) Monocytes # (Auto) 1.2 x10^3/uL (0.0-1.1) Eosinophils # (Auto) 0.0 x10^3/uL (0.0-0.7) Basophils # (Auto) 0.0 x10^3/uL (0.0-0.2) Platelet Estimate Adequate (ADEQUATE) Polychromasia Slight Hypochromasia Mod Anisocytosis Present Microcytosis Marked Tear Drop Cells Occ Ovalocytes Few Sodium Level 137 mmol/L (136-145) Potassium Level 4.3 mmol/L (3.5-5.1) Chloride Level 105 mmol/L (98-107) Carbon Dioxide Level 21 mmol/L (21-32) Anion Gap 11 (6-14) Blood Urea Nitrogen 7 mg/dL (7-20) Creatinine 0.7 mg/dL (0.6-1.0) Estimated GFR (Cockcroft-Gault) 90.5 Glucose Level 117 mg/dL (70-99) Calcium Level 7.0 mg/dL (8.5-10.1) Laboratory Tests Test 02/03/17 07:52 White Blood Count 9.9 x10^3/uL (4.0-11.0) Red Blood Count 4.00 x10^6/uL (3.50-5.40) Hemoglobin 7.9 g/dL (12.0-15.5) Hematocrit 26.2 % (36.0-47.0) Mean Corpuscular Volume 66 fL (79-100) Mean Corpuscular Hemoglobin 20 pg (25-35) Mean Corpuscular Hemoglobin Concent 30 g/dL (31-37) Red Cell Distribution Width 20.8 % (11.5-14.5) Platelet Count 270 x10^3/uL (140-400) I have reviewed the following labs, vitals, nursing Cardiovascular: No pertinent hx Pulmonary: No pertinent hx GI: No pertinent hx Rheumatologic: No pertinent hx Infectious disease: No pertinent hx Problem List anemia, enlarged fibroid uterus, pelvic adhesions Assessment/Plan POD #2 s/p attempted laparoscopy converted to open BRE/bilateral salpingectomy, gen surgery consult intraoperative to look at bowel adhesion, TVT abbrevo with cysto Routine po care d/c to home today NPV x 6 weeks light/limited activity x 2 weeks [address] while on narcotics keep scheduled follow up in one week with me next Sunday in the office call or return sooner for any other questions or concerns not limited to but including pain unrelieved with pain pills, increased or unexplained vaginal bleeding or T>100.4 Problems: ERIC CASAS MD Feb 03, 2017 10:48
--- NOTE | 2017-02-03 10:53 | PDOC3 ---
Discharge Summary Visit Information Date of Admission: Feb 01, 2017 Date of Discharge: Feb 03, 2017 Admitting Diagnosis Comment: fibroid, anemia Final Diagnosis same plus adhesive disease Brief Hospital Course Allergies Allergies Coded Allergies Type Severity Reaction Last Updated Verified No Known Drug Allergies 02/01/17 No Vital Signs Vital Signs Date Time Temp Pulse Resp B/P (MAP) Pulse Ox O2 Delivery O2 Flow Rate FiO2 02/03/17 07:53 18 Room Air 02/03/17 04:59 98.1 78 92/50 (64) 97 98.1 Lab Results Laboratory Tests Test 02/01/17 13:15 02/02/17 05:29 02/03/17 07:52 White Blood Count 16.1 x10^3/uL (4.0-11.0) 12.5 x10^3/uL (4.0-11.0) 9.9 x10^3/uL (4.0-11.0) Red Blood Count 4.27 x10^6/uL (3.50-5.40) 3.67 x10^6/uL (3.50-5.40) 4.00 x10^6/uL (3.50-5.40) Hemoglobin 8.3 g/dL (12.0-15.5) 7.1 g/dL (12.0-15.5) 7.9 g/dL (12.0-15.5) Hematocrit 27.3 % (36.0-47.0) 23.9 % (36.0-47.0) 26.2 % (36.0-47.0) Mean Corpuscular Volume 64 fL (79-100) 65 fL (79-100) 66 fL (79-100) Mean Corpuscular Hemoglobin 20 pg (25-35) 19 pg (25-35) 20 pg (25-35) Mean Corpuscular Hemoglobin Concent 31 g/dL (31-37) 30 g/dL (31-37) 30 g/dL (31-37) Red Cell Distribution Width 18.8 % (11.5-14.5) 19.2 % (11.5-14.5) 20.8 % (11.5-14.5) Platelet Count 293 x10^3/uL (140-400) 235 x10^3/uL (140-400) 270 x10^3/uL (140-400) Neutrophils (%) (Auto) 77 % (31-73) Lymphocytes (%) (Auto) 13 % (24-48) Monocytes (%) (Auto) 10 % (0-9) Eosinophils (%) (Auto) 0 % (0-3) Basophils (%) (Auto) 0 % (0-3) Neutrophils # (Auto) 9.6 x10^3uL (1.8-7.7) Lymphocytes # (Auto) 1.6 x10^3/uL (1.0-4.8) Monocytes # (Auto) 1.2 x10^3/uL (0.0-1.1) Eosinophils # (Auto) 0.0 x10^3/uL (0.0-0.7) Basophils # (Auto) 0.0 x10^3/uL (0.0-0.2) Platelet Estimate Adequate (ADEQUATE) Polychromasia Slight Hypochromasia Mod Anisocytosis Present Microcytosis Marked Tear Drop Cells Occ Ovalocytes Few Sodium Level 137 mmol/L (136-145) Potassium Level 4.3 mmol/L (3.5-5.1) Chloride Level 105 mmol/L (98-107) Carbon Dioxide Level 21 mmol/L (21-32) Anion Gap 11 (6-14) Blood Urea Nitrogen 7 mg/dL (7-20) Creatinine 0.7 mg/dL (0.6-1.0) Estimated GFR (Cockcroft-Gault) 90.5 Glucose Level 117 mg/dL (70-99) Calcium Level 7.0 mg/dL (8.5-10.1) Laboratory Tests Test 02/03/17 07:52 White Blood Count 9.9 x10^3/uL (4.0-11.0) Red Blood Count 4.00 x10^6/uL (3.50-5.40) Hemoglobin 7.9 g/dL (12.0-15.5) Hematocrit 26.2 % (36.0-47.0) Mean Corpuscular Volume 66 fL (79-100) Mean Corpuscular Hemoglobin 20 pg (25-35) Mean Corpuscular Hemoglobin Concent 30 g/dL (31-37) Red Cell Distribution Width 20.8 % (11.5-14.5) Platelet Count 270 x10^3/uL (140-400) Brief Hospital Course Ms. Wilburn is a 46 old female who presented with chronic anemia and enlarged fibroid uterus. Underwent an attempted laparoscopy and converted to BRE once colon adhesions were seen to posterior uterus. She has had no postoperative complications and is going home today. Voiding without catheter, passing gas, tolerating a regular diet, ambulating well and voiding without catheter. Discharge Information Condition at Discharge: Improved Follow Up: Weeks Disposition/Orders: D/C to Home Scheduled Omeprazole (Omeprazole), 20 MG PO DAILY, (Reported) Patient Instructions Patient Instructions POD #2 s/p attempted laparoscopy converted to open BRE/bilateral salpingectomy, gen surgery consult intraoperative to look at bowel adhesion, TVT abbrevo with cysto Routine po care d/c to home today NPV x 6 weeks light/limited activity x 2 [address] while on narcotics keep scheduled follow up in one week with me next Sunday in the office call or return sooner for any other questions or concerns not limited to but including pain unrelieved with pain pills, increased or unexplained vaginal bleeding or T>100.4 ERIC CASAS MD Feb 03, 2017 10:53
[2017-02-03] MEDS: DOCUSATE SODIUM 100 MG CAPSULE. PO PRN (14:00)
--- NOTE | 2017-02-05 13:45 | PATHOLOGY ---
PATHOLOGY REPORT * * * * * * * * FINAL DIAGNOSIS: Uterus and bilateral fallopian tubes, hysterectomy with bilateral salpingectomy: - Leiomyomas, uterine corpus, subserosal / intramural / submucosal, multiple, the largest measuring 8.0 cm in greatest dimension and showing infarction and focal calcification (Uterine weight 166 grams). - Secretory pattern endometrium showing stromal decidualization with focal suppressed inactive endometrial glands. 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 - Bilateral fallopian tubes showing no significant pathologic abnormalities. COMMENT: There is no evidence of malignancy. REPORT ELECTRONICALLY SIGNED BY: Brennan Jason M.D. DATE/TIME: 02/05/2017 13:44 * * * * * * * * GROSS PATHOLOGY: The specimen is received in formalin, labeled "Languterus, cervix, bilateral tubes" is a hysterectomy specimen including uterus, cervix, and bilateral fallopian tubes which weighs 166 g and measures 15.1 cm superior to inferior, approximately 12.5 cm cornu to cornu, and up to 10.3 cm anterior to posterior. The serosa is quiñonez-brown and smooth with multiple large bulging fibroids which have not perforated the surface. The quiñonez-white glistening cervical face measures 3.2 x 3.0 cm with a 0.8 cm centrally located ovoid cervical os. The specimen is bivalved to reveal a patent trabeculated endocervical canal and a quiñonez-pink somewhat triangular endometrium. Sectioning through the specimen reveals that the transformation from the approximately 0.2 cm in thickness endometrium to the 4.5 cm in average thickness quiñonez-pink, trabeculated myometrium is poorly demarcated due to the presence of fibroids. Multiple fibroids are identified throughout the anterior and posterior halves of the specimen ranging in size from 0.5 x 0.3 x 0.3 cm up to 8.0 x 8.0 x 1 5 cm. All fibroids except the largest one display white whorled cut surfaces. The largest fibroid is located on the superior portion of both halves of the uterus and displays a yellowish brown to somewhat green friable cut surface with a ring of calcification surrounding the outer portion of the fibroid. The left fallopian tube including fimbriated end measures 6.5 cm in length by up to 0.9 cm in diameter. The outer surface of the specimen is grossly unremarkable and the specimen is sectioned to reveal a diffusely patent lumen. The right fallopian tube including fimbriated end measures 5.8 cm in length by up to 0.9 cm in diameter. The outer surface of the specimen is grossly unremarkable and is sectioned to reveal a diffusely patent lumen. Section code: K6ntwibu 12:00, G7wfbtgi, 6:00, F6icyprxbp uterus, U6tqgarbmoc uterus, A5 through [id number] sections from normal-appearing fibroids, [id number] sections from discolored areas of largest fibroid, [id number] sections from calcified areas of largest fibroid submitted following decalcification, A9left fallopian tube, R31egfbi fallopian tube. (AKA; 02/02/2017) INITIAL CPT CODE(S): A; 17569 Professional services performed [place] [address] Technical services performed by [facility] at [address] [place] [address] [address], [place] [address]. SPECIMEN(S) RECEIVED: A.Uterus, cervix, bilateral tubes CLINICAL HISTORY: Uterine fibroids PATIENT: JUDIE FERMIN /AGE: 804/14/1970 (Age: 46) PATIENT #: [id number] ALT CASE #: SPECIMEN COLLECTION DATE: 02/01/2017 SPECIMEN RECEIVED DATE: 02/01/2017 [facility] - [id number] [place] [address] - PHONE: [phone] * * * END OF REPORT * * *
== END 2017-02-03 15:06 | disposition home or self-care (01) | DRG 743 ==
LOC: SURG 05:39 → 3 NORTH 11:20
PROVIDERS: ADMIT Obstetrics & Gynecology; ATTEND Obstetrics & Gynecology
PROC: 0UT70ZZ Resection of Bilateral Fallopian Tubes, Open Approach (ICD-10-PCS; 2017-02-01)
PROC: 0UN90ZZ Release Uterus, Open Approach (ICD-10-PCS; 2017-02-01)
PROC: 0UT90ZZ Resection of Uterus, Open Approach (ICD-10-PCS; principal; 2017-02-01 07:30)
PROC: 0UTC0ZZ Resection of Cervix, Open Approach (ICD-10-PCS; 2017-02-01 07:30)
DX: D25.9 Leiomyoma of uterus, unspecified (principal); D64.9 Anemia, unspecified; N39.3 Stress incontinence (female) (male); Z53.31 Laparoscopic surgical procedure converted to open procedure; K21.9 Gastro-esophageal reflux disease without esophagitis; Z79.899 Other long term (current) drug therapy
CPT/HCPCS: 36415; 80048; 81025; 85007; 85027; 86850; 86900; 86901; 88307; C1769; J1100; J1885; J2250; J2270; J2405; J2704; J2710; J3010; J3490; J7030; J7120; Q9968; S0028